=== PATIENT | male | born 1955 | race Caucasian/White ===

== ENCOUNTER 2016-11-01 03:27 | Emergency (ER) | payer MEDICAID ==
[~2016-11-01] VITALS: Ht 177.8 cm; Wt 90.0 kg
[2016-11-01] MEDS ORDERED: MORPHINE SULFATE 2 MG/ML CPJ (NOT FOR IM USE) IV ONE (04:15)
[2016-11-01 04:38] LABS: HEMATOCRIT. 39.2 % (42.0-52.0); HEMOGLOBIN. 13.3 g/dL (14.0-18.0); MEAN CORPUSCULAR HEMOGLOBIN 28.5 pg (28.0-32.0); MEAN CORPUSCULAR VOLUME 83.5 fL (80.0-94.0); MEAN PLATELET VOLUME 7.8 fl (7.4-10.4); PLATELET 271 x1000/uL (130-400); RED BLOOD CELL COUNT 4.69 mill/uL (4.7-6.1); RED CELL DISTRIBUTION WIDTH 16.5 % (11.6-14.6)
[2016-11-01 04:43] LABS: INR 1.2; PROTHROMBIN TIME 12.6 sec
[2016-11-01] MEDS ORDERED: ONDANSETRON HCL 4MG/2ML VIAL IV ONE (04:45)
[2016-11-01 04:50] LABS: PLATELET ESTIMATE NORMAL
[2016-11-01 04:51] LABS: CARBON DIOXIDE 27 mEq/L (21-32); CHLORIDE 102 mEq/L (98-107)
[2016-11-01] MEDS ORDERED: LIDOCAINE HCL 1%/EPI 1:200,000 30 ML VIAL MC ONE (10:30)
[2016-11-01] MEDS ORDERED: GADOBENATE DIMEGLUMINE 529 MG/ML 10ML IV ONE (10:49)
[2016-11-01] MEDS ORDERED: HYDROCODONE/ACETAMINOPHEN 5/325MG TABLET PO ONE (13:45)
[2016-11-01 16:53] VITALS: BP 129/77
== END 2016-11-01 17:35 | disposition home or self-care (01) ==
LOC: ER 03:27
DX: G89.18 Other acute postprocedural pain (principal); R51 Headache; D72.829 Elevated white blood cell count, unspecified; I48.91 Unspecified atrial fibrillation; I10 Essential (primary) hypertension; G93.89 Other specified disorders of brain; M48.02 Spinal stenosis, cervical region; Z85.841 Personal history of malignant neoplasm of brain
CPT/HCPCS: 36415; 70450; 70553; 80053; 85025; 85610; 96374; 96375; 99285; J2270; J2405; X7700; Z7610